=== PATIENT | male | born 1960 | race Caucasian/White ===

== ENCOUNTER → 2016-11-11 | Outpatient (CLI) | payer BC ==
--- NOTE | 2016-11-14 13:30 | CR ---
EXAM DATE: 11/11/16 PATIENT'S AGE: 56 Patient: VLAD NOLAN Facility: [facility] Site . Site : 1960 Study: XRay-Shoulder Right [id number]/5/2017 4:20:12 PM Ordering Physician: Randell Orellana Final Report: INDICATION: pain rt shoulder TECHNIQUE: Three views of the right shoulder. Suboptimal axial view COMPARISON: None FINDINGS: Bones: No fractures or bone lesions. Joint spaces: Degenerative changes of the right acromioclavicular change. Soft tissues: Unremarkable. IMPRESSION: No acute bony abnormality. Dictated by Den Matthews MD @ 11/11/2016 4:48:02 PM Dictated by: Den Matthews MD @ 11/11/2016 16:48:39 Signed by: Den Matthews MD @11/11/2016 4:48:39 PM (Electronic Signature) Report Signed by Proxy. [facility]
== END ==
LOC: MW.CHFP 15:51
PROVIDERS: ATTEND Nurse Practitioner Family
DX: M25.511 Pain in right shoulder (principal)
CPT/HCPCS: 73030-26-RT; 73030-RT

== ENCOUNTER → 2016-11-21 | Outpatient (CLI) | payer BC ==
--- NOTE | 2016-11-21 16:17 | MR ---
EXAMINATION: MRI right shoulder HISTORY: Pain COMPARISON: Radiograph dated 11/11/2016 TECHNIQUE: Multiplanar and multisequence images obtained through the right shoulder without contrast . FINDINGS: The acromion is convex. Moderate acromioclavicular osteoarthritic changes are noted. There is a small amount of subdeltoid and subacromial fluid. There is a small full-thickness tear of the supraspinatus tendon at the footplate. There is also thickening of the supraspinatus tendon with lik corina retraction of a portion of the undersurface of the distal tendon. Infraspinatus and teres minor tendons appear grossly intact. The long head biceps tendon is within the bicipital groove, however a secured bicipital anchor on the superior glenoid is not present. There is a superior labral tear e xtending anteriorly to posteriorly the articular surfaces are grossly preserved. There is a trace shane int effusion. The inferior glenohumeral ligament appears thinned however grossly intact. Subtle carmita ical cystic changes noted at the rotator cuff insertion. No suspicious bone marrow signal changes. IMPRESSION: 1. Small full-thickness tear of the supraspinatus tendon at the footplate with likely undersurface r etraction of a portion of the distal tendon. 2. SLAP tear. 3. Disruption of the proximal attachment of the long head biceps tendon. 4. Acromioclavicular osteophytic changes.
== END ==
LOC: MW.MRI 11:14
PROVIDERS: ATTEND Nurse Practitioner Family
DX: M25.511 Pain in right shoulder (principal); S46.811A Strain of other muscles, fascia and tendons at shoulder and upper arm level, right arm, initial encounter; S43.491A Other sprain of right shoulder joint, initial encounter; M25.711 Osteophyte, right shoulder; Z91.81 History of falling
CPT/HCPCS: 73221-26-RT; 73221-RT

== ENCOUNTER 2018-07-17 08:16 | Emergency (ER) | payer OTHER, BC ==
[2018-07-17] MEDS ORDERED: Sodium Chloride 0.9% 2.5 ML Syringe FLUSH PRN (08:19)
[2018-07-17] MEDS ORDERED: Sodium Chloride 0.9% 10 ML Syringe FLUSH PRN (08:19)
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
--- NOTE | 2018-07-17 08:53 | CT ---
CT of the abdomen and pelvis without contrast. HISTORY: Pain TECHNIQUE: Axial CT images were obtained of the abdomen and pelvis without contrast. Coronal and sagittal reconstructions obtained. FINDINGS: The lung bases are clear, no pleural effusion. The liver, spleen, and pancreas appear unremarkable for noncontrast examination. There is a 2 cm right adrenal adenoma. The gallbladder appears normal. There is no bulky retroperitoneal lymphadenopathy. No abdominal ascites. There are no calcifications noted within the kidneys or along the courses of the ureters bilaterally. The large and small bowel are normal in caliber without evidence of obstruction. The appendix appears normal. There is no bulky pelvic lymphadenopathy. No free fluid. No free air. The urinary bladder appears normal. Small right fat-containing inguinal hernia. The visualized osseous structures appear normal. IMPRESSION: No acute findings within the abdomen or pelvis.
--- NOTE | 2018-07-17 08:55 | CR ---
EXAMINATION: Left elbow HISTORY: Trauma COMPARISON: None TECHNIQUE: 3 views FINDINGS/IMPRESSION: There is widening of the radiocapitellar joint with a small ossific density along the lateral aspect of the elbow, an underlying radial collateral ligament injury is not excluded. Otherwise no fracture or acute osseous abnormality is demonstrated. Possibly a small joint effusion however a true lateral was not obtained.
[2018-07-17] MEDS: HYDROmorphone 1 MG/ML Syringe IVPUSH PRN ×2 (09:02→10:30)
[2018-07-17] MEDS ORDERED: Ondansetron 4 MG/2 ML SDV IVPUSH ONE (09:06)
[2018-07-17] MEDS ORDERED: Diphtheria,Pertussis(Acell),Tetanus Vaccine 0.5 ML Syringe IM ONE (09:35)
[2018-07-17] MEDS ORDERED: Sodium Chloride 0.9% 1,000 ML IV ONE (11:54)
[2018-07-17 12:29] LABS: CHLORIDE,CL 107 mmol/L (98-107); SODIUM,NA 138 mmol/L (136-148)
== END 2018-07-17 13:04 | disposition home or self-care (01) ==
LOC: MW.ED 08:16
DX: S57.02XA Crushing injury of left elbow, initial encounter (principal); S77.02 Crushing injury of left hip; S77.01 Crushing injury of right hip; F17.210 Nicotine dependence, cigarettes, uncomplicated; Z23 Encounter for immunization; Z88.8 Allergy status to other drugs, medicaments and biological substances; V03.99XA Pedestrian with other conveyance injured in collision with car, pick-up truck or van, unspecified whether traffic or nontraffic accident, initial encounter
CPT/HCPCS: 36415; 73080; 74176; 80053; 82550; 85025; 90471; 90715; 93005; 96361; 96374; 96376; 99285; G0390; J1170; J7040

== ENCOUNTER 2019-02-18 23:02 | Emergency (ER) | payer BC, OTHER ==
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
[2019-02-18] MEDS ORDERED: Erythromycin Base 0.5% Ophth Oint 1 GM Tube EYEBOTH ONE (23:14)
[2019-02-18] MEDS ORDERED: Acetaminophen/HYDROcodone 325-5 MG Tab PO ONE (23:15)
[2019-02-18] MEDS ORDERED: Tetracaine HCl/PF 0.5% 4 ML Bottle EYEBOTH ONE (23:18)
== END 2019-02-18 23:40 | disposition home or self-care (01) ==
LOC: MW.ED 23:02
DX: H16.133 Photokeratitis, bilateral (principal); Z98.49 Cataract extraction status, unspecified eye; Z88.8 Allergy status to other drugs, medicaments and biological substances
CPT/HCPCS: 99283; A9270

== ENCOUNTER 2024-11-05 19:31 | Inpatient (IN) | payer BC ==
[2024-11-05 20:02] LABS: BASOPHILS ABSOLUTE AUTO 0.05 K/uL (0.00-0.20); BASOPHILS PERCENT AUTO 0.4 % (0.0-1.0); EOSINOPHILS ABSOLUTE AUTO 0.22 K/uL (0.00-0.45); EOSINOPHILS PERCENT AUTO 1.6 % (0.0-6.0); HEMATOCRIT 45.8 % (42.0-52.0); HEMOGLOBIN 15.6 g/dL (14.0-18.0); IMMATURE GRAN ABSOLUTE AUTO 0.05 K/uL (0.00-0.05); IMMATURE GRAN PERCENT AUTO 0.4 % (0.0-0.4); LYMPHOCYTES ABSOLUTE AUTO 3.02 K/uL (1.00-4.80); MEAN CORPUSCULAR HEMOGLOBIN 31.3 pg (28.0-32.0); MEAN CORPUSCULAR HGB CONC 34.1 g/dL (32.0-36.0); MEAN PLATELET VOLUME 10.9 fL (9.4-12.4); MONOCYTES ABSOLUTE AUTO 1.26 K/uL (0.00-0.80); MONOCYTES PERCENT AUTO 9.2 % (0.0-8.0); NEUTROPHILS ABSOLUTE AUTO 9.15 K/uL (1.80-7.70); NEUTROPHILS PERCENT AUTO 66.4 % (41.0-71.0); PLATELET COUNT,PLT 227 K/uL (150-400); RED BLOOD CELL COUNT 4.98 M/uL (4.52-5.90); WHITE BLOOD CELL COUNT,WBC 13.75 K/uL (3.9-11.3)
[2024-11-05] MEDS: Sodium Chloride 0.9% 1,000 ML IV ONE (20:04)
[2024-11-05 20:10] LABS: INR 1.02 (0.86-1.11); PTT,PARTIAL THROMBOPLSTIN TIME 27.1 SEC (23.9-30.7)
[2024-11-05 20:16] LABS: A/G RATIO 1.2 (0.9-1.6); ALBUMIN 3.7 g/dL (3.4-5.0); BILIRUBIN TOTAL 0.3 mg/dL (0.2-1.0); CALCIUM 8.6 mg/dL (8.5-10.1); CARBON DIOXIDE,CO2 23.3 mmol/L (21.0-32.0); CREATININE 1.3 mg/dL (0.8-1.3); EST CRCL DRUG DOSING (CG) 61.14 mL/min; POTASSIUM,K 3.4 mmol/L (3.5-5.1); PROTEIN TOTAL,TP 6.8 g/dL (6.4-8.2)
[2024-11-05] MEDS: Diltiazem 25 MG/5 ML SDV IVPUSH ONE (20:18)
[2024-11-05 20:49] LABS: CORONAVIRUS COVID-19 NAA NEGATIVE (NEGATIVE); INFLUENZA A NAA NEGATIVE (NEGATIVE); INFLUENZA B NAA NEGATIVE (NEGATIVE)
[2024-11-05] MEDS: Ketorolac 30 MG/ML SDV IVPUSH ONE (21:49)
[2024-11-05] MEDS: Aspirin 81 MG Tab.Chew PO ONE (21:50)
[2024-11-05] MEDS: Diltiazem IR 30 MG Tab PO ONE (21:50)
[2024-11-05] MEDS: Potassium Chloride 20 MEQ Tab.ER PO ONE (21:50)
[2024-11-06] MEDS: Ibuprofen 400 MG Tab PO PRN (00:55)
[2024-11-06 02:01] LABS: APPEARANCE,URINE CLEAR; BILIRUBIN,URINE NEGATIVE (NEGATIVE); COLOR,URINE YELLOW; GLUCOSE,URINE NEGATIVE (NEGATIVE); KETONES,URINE NEGATIVE (NEGATIVE); LEUKOCYTE ESTERASE,URINE NEGATIVE (NEGATIVE); NITRITE,URINE NEGATIVE (NEGATIVE); OCCULT BLOOD,URINE NEGATIVE (NEGATIVE); PH,URINE 5.5 (5.0-8.0); PROTEIN,URINE NEGATIVE (NEGATIVE); UROBILINOGEN,URINE 0.2 EU/dL (<2.0)
[2024-11-06 06:51] LABS: BASOPHILS ABSOLUTE AUTO 0.04 K/uL (0.00-0.20); BASOPHILS PERCENT AUTO 0.4 % (0.0-1.0); EOSINOPHILS ABSOLUTE AUTO 0.25 K/uL (0.00-0.45); EOSINOPHILS PERCENT AUTO 2.4 % (0.0-6.0); HEMATOCRIT 44.6 % (42.0-52.0); HEMOGLOBIN 15.2 g/dL (14.0-18.0); IMMATURE GRAN ABSOLUTE AUTO 0.04 K/uL (0.00-0.05); IMMATURE GRAN PERCENT AUTO 0.4 % (0.0-0.4); LYMPHOCYTES ABSOLUTE AUTO 2.26 K/uL (1.00-4.80); MEAN CORPUSCULAR HEMOGLOBIN 31.1 pg (28.0-32.0); MEAN CORPUSCULAR HGB CONC 34.1 g/dL (32.0-36.0); MEAN CORPUSCULAR VOLUME 91.2 fL (83.0-99.0); MEAN PLATELET VOLUME 10.9 fL (9.4-12.4); MONOCYTES ABSOLUTE AUTO 1.24 K/uL (0.00-0.80); MONOCYTES PERCENT AUTO 12.1 % (0.0-8.0); NEUTROPHILS ABSOLUTE AUTO 6.43 K/uL (1.80-7.70); NEUTROPHILS PERCENT AUTO 62.7 % (41.0-71.0); PLATELET COUNT,PLT 211 K/uL (150-400); RED BLOOD CELL COUNT 4.89 M/uL (4.52-5.90); WHITE BLOOD CELL COUNT,WBC 10.26 K/uL (3.9-11.3)
[2024-11-06 07:22] LABS: A/G RATIO 1.1 (0.9-1.6); ALBUMIN 3.4 g/dL (3.4-5.0); BILIRUBIN TOTAL 0.6 mg/dL (0.2-1.0); CREATININE 0.8 mg/dL (0.8-1.3); EST CRCL DRUG DOSING (CG) 99.35 mL/min; POTASSIUM,K 3.9 mmol/L (3.5-5.1); PROTEIN TOTAL,TP 6.4 g/dL (6.4-8.2)
[2024-11-06 07:33] LABS: CALCIUM 8.1 mg/dL (8.5-10.1)
== END 2024-11-06 12:17 | disposition home or self-care (01) | DRG 201 ==
LOC: MW.ED 19:31 → MW.ICU 21:31
PROVIDERS: ADMIT Internal Medicine; ATTEND Internal Medicine
DX: I48.91 Unspecified atrial fibrillation (principal); I48.4 Atypical atrial flutter; K21.9 Gastro-esophageal reflux disease without esophagitis; E87.6 Hypokalemia; Z72.0 Tobacco use; Z98.49 Cataract extraction status, unspecified eye; Z88.8 Allergy status to other drugs, medicaments and biological substances
CPT/HCPCS: 0240U; 36415; 71045; 71045-26; 80053; 81003; 83690; 83735; 84484; 85025; 85610; 85730; 93005; 93246; 93306; A9270-GY; J1885; J3490; J7030